=== PATIENT | male | born 1950 | race African-American/Black ===

== ENCOUNTER 2017-04-19 10:24 | Day surgery (SDC) | payer MEDICARE ==
[~2017-04-19 10:24] MED LIST: ALLEGRA-D 2424 HOUR PO; ALLEGRA-D24 HOUR OR; ALLERGY RELF10 M1 PO; AMLODIPINE5 MG PO; AVODART0.5 MG PO; CIPRO XR500 MG PO; CIPRO500 MG OR; CYCLOBENZAPR5 MG PO; DIFLUCAN150 MG PO; GABAPENTIN300 M2 PO; GLUCOPHAGE500 MG OR; HUMALIN SC; HUMULIN N1 ML SC; HUMULIN N100 UNIT/M; JANUVIA50 MG PO; LASIX 40 MG TAB40 MG PO; LISINOP/HCTZ1 TA1 PO; LISINOP/HCTZ1 TA2 OR; LISINOPRIL20 MG PO; LORTAB 5 OR; MACROBID100 MG PO; METFORMIN500 M1 PO; METFORMIN850 MG PO; MOBIC7.5 M1 PO; NAPROSYN375 MG PO; PRILOSEC20 MG PO; PROSTATE SR PO; PYRIDIUM200 MG PO; TAMSULOSIN0.4 MG PO; TRAMADOL HYDROC50 MG PO; ULTRAM50 M1 PO; ULTRAM50 MG OR
[2017-04-19] MEDS ORDERED: TRAMADOL HCL50 MG PO (16:48)
[2017-04-19] MEDS ORDERED: VESICARE5 MG PO (16:48)
[2017-04-19] MEDS ORDERED: BACTRIM DS1 TAB PO (16:48)
[2017-04-19] MEDS ORDERED: PYRIDIUM200 MG PO (16:48)
[2017-04-19 17:44] VITALS: BP 174/84
== END 2017-04-19 17:20 | disposition home health service (06) ==
LOC: ORM 10:24
PROVIDERS: ATTEND Urology
PROC: 0V508ZZ Destruction of Prostate, Via Natural or Artificial Opening Endoscopic (ICD-10-PCS; principal; 2017-04-19)
DX: N40.1 Benign prostatic hyperplasia with lower urinary tract symptoms (principal); N13.8 Other obstructive and reflux uropathy; R35.1 Nocturia; R97.20 Elevated prostate specific antigen [PSA]; E11.9 Type 2 diabetes mellitus without complications; K21.9 Gastro-esophageal reflux disease without esophagitis; Z87.891 Personal history of nicotine dependence
CPT/HCPCS: J1956

== ENCOUNTER 2017-05-05 11:46 | Emergency (ER) | payer MEDICARE ==
[~2017-05-05] VITALS: Ht 185.4 cm; Wt 91.8 kg
[~2017-05-05 11:46] MED LIST changes: +BACTRIM DS1 TAB PO; +TRAMADOL HCL50 MG PO; +VESICARE5 MG PO
[2017-05-05] MEDS ORDERED: HUMULIN N100 UNIT/M SC (12:17)
[2017-05-05 13:04] LABS: HEMATOCRIT 32.5 % (39.0-50.0); HEMOGLOBIN 9.9 g/dl (14.0-18.0); IMMATURE GRANULOCYTES 0.3 % (0.0-1.0); MEAN CELL VOLUME 90.3 fL CALC (80.0-100.0); MEAN CORPUSCULAR HGB 27.5 pG CALC (26.0-32.0); MEAN CORPUSCULAR HGB CONC 30.5 g/L CALC (32.0-36.0); NEUT# 10.89 thou/uL (1.82-7.42); RED BLOOD COUNT 3.6 mill/uL (4.70-6.10); RED CELL DISTRI WIDTH 16.4 % (11.5-15.5)
[2017-05-05 13:16] LABS: ALBUMIN 4.2 g/dL (3.2-5.0); ALKALINE PHOSPHATASE 105 u/l (38-126); AMYLASE 48 u/l (30-110); ANION GAP 17 (6-22 (CALC)); BILIRUBIN, TOTAL 1.3 mg/dL (0.0-1.4); BUN 15 mg/dL (8-23); BUN/CREATININE RATIO 17 (12-20 (CALC)); CALCIUM 9.7 mg/dL (8.4-10.2); CARBON DIOXIDE 27 mmol/l (22-30); CHLORIDE 99 mmol/l (95-108); CREATININE 0.8 mg/dL (0.7-1.3); GFR > 60 ML/MIN (>=60 (CALC)); GFR FOR AFR.AMER. > 60 ML/MIN (>=60 (CALC)); GLUCOSE 126 mg/dL (82-115); LIPASE 12 u/l (23-300); POTASSIUM 4.2 mmol/l (3.5-5.1); SGOT/AST 23 u/l (19-48); SGPT/ALT 42 u/l (11-66); SODIUM 139 mmol/l (137-146); TOTAL PROTEIN 7.6 g/dL (6.3-8.2)
[2017-05-05 13:28] LABS: MYOGLOBIN 37 ng/mL (0 - 121)
[2017-05-05 14:28] LABS: URINE BILIRUBIN - DIPSTICK NEGATIVE (NEGATIVE); URINE BLOOD DIPSTICK MODERATE (NEGATIVE); URINE GLUCOSE - DIPSTICK 100 mg/dL (NEGATIVE); URINE KETONE NEGATIVE (NEGATIVE); URINE PH 8.5 (4.5-8.0); URINE PROTEIN - DIPSTICK 100 mg/dL (NEG-TRACE)
[2017-05-05 14:30] LABS: URINE CLARITY CLOUDY; URINE COLOR ORANGE; URINE LEUK ESTERASE SMALL (NEGATIVE); URINE NITRITE - DIPSTICK POSITIVE (Negative)
[2017-05-05 14:42] LABS: URINE BACTERIA MANY hpf; URINE RBC TNTC RBC/hpf (0-5); URINE SQUAMOUS EPITHELIAL CELL FEW EPI/hpf (0-FEW); URINE WBC 20-50 WBC/hpf (0-5)
[2017-05-05] MEDS ORDERED: CITRATE OF MEGNESIA PO (17:04)
[2017-05-05] MEDS ORDERED: MIRALAX3350 N1 PO (17:04)
[2017-05-05] MEDS ORDERED: CEPHALEXIN500 MG PO (17:04)
[2017-05-05 17:27] VITALS: BP 143/77
== END 2017-05-05 17:25 | disposition home or self-care (01) ==
LOC: ED 11:46
PROVIDERS: Emergency Medicine
DX: T83.511A Infection and inflammatory reaction due to indwelling urethral catheter, initial encounter (principal); K59.00 Constipation, unspecified; R10.84 Generalized abdominal pain; R94.31 Abnormal electrocardiogram [ECG] [EKG]; B96.4 Proteus (mirabilis) (morganii) as the cause of diseases classified elsewhere
CPT/HCPCS: Q9967

== ENCOUNTER 2017-06-12 11:07 | Emergency (ER) | payer MEDICARE ==
[~2017-06-12] VITALS: Ht 185.4 cm; Wt 90.0 kg
[~2017-06-12 11:07] MED LIST changes: +CEPHALEXIN500 MG PO; +CITRATE OF MEGNESIA PO; +HUMULIN N100 UNIT/M SC; +MIRALAX3350 N1 PO
[2017-06-12] MEDS ORDERED: OXYBUTYNIN CHLO10 MG PO (11:50)
[2017-06-12 11:51] LABS: HEMATOCRIT 39.2 % (39.0-50.0); HEMOGLOBIN 12.2 g/dl (14.0-18.0); IMMATURE GRANULOCYTES 0.2 % (0.0-1.0); MEAN CELL VOLUME 82.5 fL CALC (80.0-100.0); MEAN CORPUSCULAR HGB 25.7 pG CALC (26.0-32.0); MEAN CORPUSCULAR HGB CONC 31.1 g/L CALC (32.0-36.0); NEUT# 2.87 thou/uL (1.82-7.42); RED BLOOD COUNT 4.75 mill/uL (4.70-6.10); URINE BILIRUBIN - DIPSTICK NEGATIVE (NEGATIVE); URINE BLOOD DIPSTICK SMALL (NEGATIVE); URINE CLARITY CLEAR; URINE COLOR YELLOW; URINE GLUCOSE - DIPSTICK NEGATIVE (NEGATIVE); URINE KETONE NEGATIVE (NEGATIVE); URINE PROTEIN - DIPSTICK NEGATIVE (NEG-TRACE); URINE SPECIFIC GRAVITY <=1.005; URINE UROBILINOGEN - DIPSTICK 0.2 E.U./dL (0.2)
[2017-06-12 11:55] LABS: URINE LEUK ESTERASE LARGE (NEGATIVE)
[2017-06-12 11:59] LABS: URINE NITRITE - DIPSTICK NEGATIVE (Negative)
[2017-06-12 12:01] LABS: URINE BACTERIA RARE hpf; URINE EPITHELIAL CELLS RARE EPI/hpf (0-FEW)
[2017-06-12 12:06] LABS: ALBUMIN 4.2 g/dL (3.2-5.0); ALKALINE PHOSPHATASE 86 u/l (38-126); ANION GAP 16 (6-22 (CALC)); BILIRUBIN, TOTAL 0.5 mg/dL (0.0-1.4); BUN 15 mg/dL (8-23); BUN/CREATININE RATIO 18 (12-20 (CALC)); CALCIUM 9.2 mg/dL (8.4-10.2); CARBON DIOXIDE 28 mmol/l (22-30); CHLORIDE 101 mmol/l (95-108); CREATININE 0.8 mg/dL (0.7-1.3); GFR > 60 ML/MIN (>=60 (CALC)); GFR FOR AFR.AMER. > 60 ML/MIN (>=60 (CALC)); GLUCOSE 213 mg/dL (82-115); POTASSIUM 4.1 mmol/l (3.5-5.1); SGOT/AST 32 u/l (19-48); SGPT/ALT 49 u/l (11-66); SODIUM 141 mmol/l (137-146); TOTAL PROTEIN 7.4 g/dL (6.3-8.2)
[2017-06-12] MEDS ORDERED: BACTRIM DS1 TAB PO (12:30)
[2017-06-12 12:45] VITALS: BP 150/80
== END 2017-06-12 12:45 | disposition home or self-care (01) ==
LOC: ED 11:07
PROVIDERS: Emergency Medicine
DX: N39.0 Urinary tract infection, site not specified (principal); R30.0 Dysuria; Z98.890 Other specified postprocedural states; B96.20 Unspecified Escherichia coli [E. coli] as the cause of diseases classified elsewhere

== ENCOUNTER 2018-10-23 06:40 | Emergency (ER) | payer MEDICARE ==
[~2018-10-23] VITALS: Ht 185.4 cm; Wt 80.0 kg
[~2018-10-23 06:40] MED LIST changes: +CIPROFLOXACN500 MG PO; +GLIMEPIRIDE4 MG PO; +MYRBETRIQ25 MG PO; +OXYBUTYNIN CHLO10 MG PO
[2018-10-23 07:23] LABS: HEMATOCRIT 38.1 % (39.0-50.0); HEMOGLOBIN 11.8 g/dl (14.0-18.0); IMMATURE GRANULOCYTES 0.2 % (0.0-5.0); MEAN CORPUSCULAR HGB 26.3 pG CALC (26.0-32.0); NEUT# 2.68 thou/uL (1.82-7.42); RED BLOOD COUNT 4.48 mill/uL (4.70-6.10); RED CELL DISTRI WIDTH 14.1 % (11.5-15.5)
[2018-10-23] MEDS ORDERED: ONDANSETRON HCL4 MG PO (07:25)
[2018-10-23] MEDS ORDERED: NAPROXEN250 MG PO (07:27)
[2018-10-23] MEDS ORDERED: PEPCID40 MG PO (07:29)
[2018-10-23] MEDS ORDERED: LOSARTAN POT50 MG PO (07:30)
[2018-10-23] MEDS ORDERED: HUMULIN N100 UNIT/M SC (07:31)
[2018-10-23 07:50] LABS: ALBUMIN 3.8 g/dL (3.2-5.0); ALKALINE PHOSPHATASE 81 u/l (38-126); ANION GAP 12 (6-22 (CALC)); BILIRUBIN, TOTAL 0.3 mg/dL (0.0-1.4); BUN 16 mg/dL (8-23); BUN/CREATININE RATIO 21 (12-20 (CALC)); CARBON DIOXIDE 28 mmol/l (22-30); CHLORIDE 102 mmol/l (95-108); CREATININE 0.8 mg/dL (0.7-1.3); GFR > 60 ML/MIN (>=60 (CALC)); GFR FOR AFR.AMER. > 60 ML/MIN (>=60 (CALC)); SGOT/AST 19 u/l (19-48); SODIUM 137 mmol/l (137-146); TOTAL PROTEIN 6.5 g/dL (6.3-8.2)
[2018-10-23] MEDS ORDERED: ULTRAM50 M1 PO (08:50)
[2018-10-23 09:21] VITALS: BP 184/75
[2018-12-09] MEDS ORDERED: TRAMADOL HYDROC50 MG PO (10:18)
[2018-12-09] MEDS ORDERED: MELOXICAM15 MG PO (10:20)
== END 2018-10-23 09:21 | disposition home or self-care (01) ==
LOC: ED 06:40
PROVIDERS: Emergency Medicine
DX: M25.512 Pain in left shoulder (principal); M25.511 Pain in right shoulder; E11.65 Type 2 diabetes mellitus with hyperglycemia; I10 Essential (primary) hypertension; M54.2 Cervicalgia

== ENCOUNTER 2019-08-15 19:46 | Observation (INO) | payer MEDICARE ==
[~2019-08-15] VITALS: Ht 185.4 cm; Wt 91.2 kg
[~2019-08-15 19:46] MED LIST changes: +LOSARTAN POT50 MG PO; +MELOXICAM15 MG PO; +NAPROXEN250 MG PO; +ONDANSETRON HCL4 MG PO; +PEPCID40 MG PO
[2019-08-15] MEDS ORDERED: NORVASC5 M1 PO (20:15)
[2019-08-15] MEDS ORDERED: PEPCID20 MG PO (20:15)
[2019-08-15] MEDS ORDERED: CARAFATE1 GM PO (20:16)
[2019-08-15] MEDS ORDERED: PERCOCET1 TA4 PO (20:16)
[2019-08-15] MEDS ORDERED: MYRBETRIQ25 MG PO (20:17)
[2019-08-15] MEDS ORDERED: LASIX20 MG PO (20:17)
[2019-08-15 20:39] LABS: HEMATOCRIT 36.6 % (39.0-50.0); HEMOGLOBIN 11.3 g/dl (14.0-18.0); IMMATURE GRANULOCYTES 0.3 % (0.0-5.0); MEAN CELL VOLUME 81.5 fL CALC (80.0-100.0); MEAN CORPUSCULAR HGB 25.2 pG CALC (26.0-32.0); MEAN CORPUSCULAR HGB CONC 30.9 g/L CALC (32.0-36.0); NEUT# 4.26 thou/uL (1.82-7.42); RED BLOOD COUNT 4.49 mill/uL (4.70-6.10); RED CELL DISTRI WIDTH 14.6 % (11.5-15.5)
[2019-08-15 20:40] LABS: ALBUMIN 4.4 g/dL (3.2-5.0); AMYLASE 71 u/l (30-110); ANION GAP 14 (6-22 (CALC)); BILIRUBIN, TOTAL 0.5 mg/dL (0.0-1.4); BUN 12 mg/dL (8-23); BUN/CREATININE RATIO 17 (12-20 (CALC)); CARBON DIOXIDE 30 mmol/l (22-30); CHLORIDE 98 mmol/l (95-108); CREATININE 0.7 mg/dL (0.7-1.3); GFR > 60 ML/MIN (>=60 (CALC)); GFR FOR AFR.AMER. > 60 ML/MIN (>=60 (CALC)); LIPASE 23 u/l (23-300); POTASSIUM 4.5 mmol/l (3.5-5.1); SGOT/AST 28 u/l (19-48); SODIUM 138 mmol/l (137-146); TOTAL PROTEIN 7.9 g/dL (6.3-8.2)
[2019-08-15 20:47] LABS: ALKALINE PHOSPHATASE 103 u/l (38-126)
[2019-08-15 23:20] VITALS: BP 178/67
[2019-08-16 04:08] VITALS: BP 175/77
[2019-08-16 07:30] VITALS: BP 159/75
[2019-08-16 16:00] VITALS: BP 190/75
[2019-08-16 19:25] VITALS: BP 182/80
[2019-08-16 20:50] VITALS: BP 103/51
[2019-08-16 23:16] LABS: URINE BILIRUBIN - DIPSTICK NEGATIVE (NEGATIVE); URINE BLOOD DIPSTICK NEGATIVE (NEGATIVE); URINE COLOR YELLOW; URINE GLUCOSE - DIPSTICK >=1000 mg/dL (NEGATIVE); URINE KETONE TRACE mg/dL (NEGATIVE); URINE LEUK ESTERASE NEGATIVE (NEGATIVE); URINE NITRITE - DIPSTICK NEGATIVE (Negative); URINE PROTEIN - DIPSTICK NEGATIVE (NEG-TRACE); URINE UROBILINOGEN - DIPSTICK 0.2 E.U./dL (0.2)
[2019-08-17 00:16] VITALS: BP 131/62
[2019-08-17 04:29] VITALS: BP 176/62
[2019-08-17 05:24] LABS: HEMATOCRIT 33.8 % (39.0-50.0); HEMOGLOBIN 10.5 g/dl (14.0-18.0); MEAN CELL VOLUME 82.4 fL CALC (80.0-100.0); MEAN CORPUSCULAR HGB 25.6 pG CALC (26.0-32.0); MEAN CORPUSCULAR HGB CONC 31.1 g/L CALC (32.0-36.0); RED BLOOD COUNT 4.1 mill/uL (4.70-6.10); RED CELL DISTRI WIDTH 14.6 % (11.5-15.5)
[2019-08-17 05:40] LABS: ANION GAP 12 (6-22 (CALC)); BUN 16 mg/dL (8-23); BUN/CREATININE RATIO 20 (12-20 (CALC)); CARBON DIOXIDE 30 mmol/l (22-30); CHLORIDE 97 mmol/l (95-108); CREATININE 0.8 mg/dL (0.7-1.3); GFR > 60 ML/MIN (>=60 (CALC)); GFR FOR AFR.AMER. > 60 ML/MIN (>=60 (CALC)); POTASSIUM 4.2 mmol/l (3.5-5.1); SODIUM 134 mmol/l (137-146)
[2019-08-17 07:10] VITALS: BP 121/56
[2019-08-17 11:51] VITALS: BP 153/55
== END 2019-08-17 13:58 | disposition home or self-care (01) ==
LOC: ED 19:46 → ED-I 21:55 → ED 21:56 → MS2 21:57
PROVIDERS: Family Medicine; ADMIT Internal Medicine; ATTEND Internal Medicine
DX: K59.03 Drug induced constipation (principal); T40.2X5A Adverse effect of other opioids, initial encounter; I10 Essential (primary) hypertension; E11.9 Type 2 diabetes mellitus without complications; K21.9 Gastro-esophageal reflux disease without esophagitis; Z79.4 Long term (current) use of insulin
CPT/HCPCS: G0378; J1650; S0164

== ENCOUNTER 2020-06-04 17:49 | Emergency (ER) | payer MEDICARE ==
[~2020-06-04] VITALS: Ht 185.4 cm; Wt 90.0 kg
[~2020-06-04 17:49] MED LIST changes: +CARAFATE1 GM PO; +LASIX20 MG PO; +NORVASC5 M1 PO; +PEPCID20 MG PO; +PERCOCET1 TA4 PO
[2020-06-04 18:24] LABS: HEMATOCRIT 38.1 % (39.0-50.0); HEMOGLOBIN 11.8 g/dl (14.0-18.0); MEAN CELL VOLUME 85.6 fL CALC (80.0-100.0); MEAN CORPUSCULAR HGB 26.5 pG CALC (26.0-32.0); NEUT# 3.33 thou/uL (1.82-7.42); RED BLOOD COUNT 4.45 mill/uL (4.70-6.10); RED CELL DISTRI WIDTH 13.8 % (11.5-15.5)
[2020-06-04 18:38] LABS: ALKALINE PHOSPHATASE 63 u/l (38-126); ANION GAP 11 (6-22 (CALC)); BILIRUBIN, TOTAL 0.6 mg/dL (0.0-1.4); BUN 18 mg/dL (8-23); BUN/CREATININE RATIO 24 (12-20 (CALC)); CARBON DIOXIDE 28 mmol/l (22-30); CHLORIDE 102 mmol/l (95-108); CREATININE 0.8 mg/dL (0.7-1.3); GFR > 60 ML/MIN (>=60 (CALC)); GFR FOR AFR.AMER. > 60 ML/MIN (>=60 (CALC)); SGOT/AST 21 u/l (19-48); SODIUM 137 mmol/l (137-146); TOTAL PROTEIN 6.8 g/dL (6.3-8.2)
[2020-06-04] MEDS ORDERED: FIORICET PO (18:56)
[2020-06-04 19:23] VITALS: BP 167/67
== END 2020-06-04 19:37 | disposition home or self-care (01) ==
LOC: ED 17:49
PROVIDERS: Emergency Medicine
DX: R51 Headache (principal); I10 Essential (primary) hypertension; E11.9 Type 2 diabetes mellitus without complications; R09.89 Other specified symptoms and signs involving the circulatory and respiratory systems; I63.9 Cerebral infarction, unspecified

== ENCOUNTER 2020-10-24 06:47 | Emergency (ER) | payer MEDICARE, MEDICAID ==
[~2020-10-24] VITALS: Ht 185.4 cm; Wt 100.0 kg
[~2020-10-24 06:47] MED LIST changes: +FIORICET PO
[2020-10-24] MEDS ORDERED: HYDROXYZINE HYD25 MG PO (07:05)
[2020-10-24] MEDS ORDERED: GABAPENTIN100 MG PO (07:06)
[2020-10-24] MEDS ORDERED: OMEPRAZOLE DR40 MG PO (07:06)
[2020-10-24] MEDS ORDERED: PLAVIX75 MG PO (07:07)
[2020-10-24] MEDS ORDERED: FIORICET PO (07:07)
[2020-10-24] MEDS ORDERED: FUROSEMIDE20 MG PO (07:08)
[2020-10-24] MEDS ORDERED: LOSARTAN POTASS50 MG PO (07:08)
[2020-10-24] MEDS ORDERED: FAMOTIDINE20 M1 PO (07:08)
[2020-10-24] MEDS ORDERED: LIPITOR20 M1 PO (07:09)
[2020-10-24] MEDS ORDERED: TAMSULOSIN0.4 MG PO (07:09)
[2020-10-24] MEDS ORDERED: PERCOCET 10/31 COMBO PO (07:09)
[2020-10-24] MEDS ORDERED: PREGABALIN75 MG PO (07:10)
[2020-10-24] MEDS ORDERED: LEVOTHYROXIN125 MCG PO (07:10)
[2020-10-24 07:46] LABS: IMMATURE GRANULOCYTES 0.2 % (0.0-5.0); MEAN CORPUSCULAR HGB 23.2 pG CALC (26.0-32.0); MEAN CORPUSCULAR HGB CONC 29.2 g/dL CAL (32.0-36.0); NEUT# 3.05 thou/uL (1.82-7.42); RED BLOOD COUNT 3.66 mill/uL (4.70-6.10); RED CELL DISTRI WIDTH 16.1 % (11.5-15.5)
[2020-10-24 07:53] LABS: ALBUMIN 3.9 g/dL (3.2-5.0); ALKALINE PHOSPHATASE 77 u/l (38-126); ANION GAP 9 (6-22 (CALC)); BILIRUBIN, TOTAL 0.5 mg/dL (0.0-1.4); BUN 24 mg/dL (8-23); BUN/CREATININE RATIO 26 (12-20 (CALC)); CARBON DIOXIDE 28 mmol/l (22-30); CHLORIDE 104 mmol/l (95-108); CREATININE 0.9 mg/dL (0.7-1.3); GFR > 60 ML/MIN (>=60 (CALC)); GFR FOR AFR.AMER. > 60 ML/MIN (>=60 (CALC)); LIPASE 21 u/l (23-300); POTASSIUM 4.2 mmol/l (3.5-5.1); SGOT/AST 28 u/l (19-48); SODIUM 137 mmol/l (137-146); TOTAL PROTEIN 6.9 g/dL (6.3-8.2)
[2020-10-24 07:57] LABS: HEMATOCRIT 29.1 % (39.0-50.0); HEMOGLOBIN 8.5 g/dl (14.0-18.0); MEAN CELL VOLUME 79.5 fL CALC (80.0-100.0)
[2020-10-24 08:04] LABS: URINE BILIRUBIN - DIPSTICK NEGATIVE (NEGATIVE); URINE BLOOD DIPSTICK NEGATIVE (NEGATIVE); URINE COLOR YELLOW; URINE GLUCOSE - DIPSTICK >=1000 mg/dL (NEGATIVE); URINE KETONE NEGATIVE (NEGATIVE); URINE LEUK ESTERASE NEGATIVE (NEGATIVE); URINE NITRITE - DIPSTICK NEGATIVE (Negative); URINE PROTEIN - DIPSTICK NEGATIVE (NEG-TRACE); URINE SPECIFIC GRAVITY 1.025
[2020-10-24] MEDS ORDERED: MIRALAX17 GM/SCOO PO (09:56)
[2020-10-24] MEDS ORDERED: MAGNESIUM296 ML/BTL PO (09:56)
[2020-10-24] MEDS ORDERED: DULCOLAX5 MG PO (09:56)
[2020-10-24 10:06] VITALS: BP 190/72
== END 2020-10-24 10:15 | disposition home or self-care (01) ==
LOC: ED 06:47
PROVIDERS: Student in an Organized Health Care Education/Training Program
DX: K59.03 Drug induced constipation (principal); T40.2X5A Adverse effect of other opioids, initial encounter; E11.9 Type 2 diabetes mellitus without complications; I10 Essential (primary) hypertension; Z86.73 Personal history of transient ischemic attack (TIA), and cerebral infarction without residual deficits; E78.5 Hyperlipidemia, unspecified
CPT/HCPCS: Q9967

== ENCOUNTER 2020-12-15 | Emergency (ER) | payer MEDICARE, MEDICAID ==
[~2020-12-15] MED LIST changes: +DULCOLAX5 MG PO; +FAMOTIDINE20 M1 PO; +FUROSEMIDE20 MG PO; +GABAPENTIN100 MG PO; +HYDROXYZINE HYD25 MG PO; +LEVOTHYROXIN125 MCG PO; +LIPITOR20 M1 PO; +LOSARTAN POTASS50 MG PO; +MAGNESIUM296 ML/BTL PO; +MIRALAX17 GM/SCOO PO; +OMEPRAZOLE DR40 MG PO; +PERCOCET 10/31 COMBO PO; +PLAVIX75 MG PO; +PREGABALIN75 MG PO
[2020-12-15 12:12] LABS: HEMATOCRIT 29.3 % (39.0-50.0); HEMOGLOBIN 8.3 g/dl (14.0-18.0); IMMATURE GRANULOCYTES 0.2 % (0.0-5.0); MEAN CELL VOLUME 70.6 fL CALC (80.0-100.0); MEAN CORPUSCULAR HGB CONC 28.3 g/dL CAL (32.0-36.0); NEUT# 2.48 thou/uL (1.82-7.42); RED BLOOD COUNT 4.15 mill/uL (4.70-6.10); RED CELL DISTRI WIDTH 17.4 % (11.5-15.5)
[2020-12-15 12:29] LABS: ALKALINE PHOSPHATASE 78 u/l (38-126); ANION GAP 6 (6-22 (CALC)); BILIRUBIN, TOTAL 0.5 mg/dL (0.0-1.4); BUN 14 mg/dL (8-23); BUN/CREATININE RATIO 14 (12-20 (CALC)); CHLORIDE 102 mmol/l (95-108); GFR > 60 ML/MIN (>=60 (CALC)); GFR FOR AFR.AMER. > 60 ML/MIN (>=60 (CALC)); SGOT/AST 26 u/l (19-48); SODIUM 138 mmol/l (137-146); TOTAL PROTEIN 7.5 g/dL (6.3-8.2)
[2020-12-15 12:30] LABS: CARBON DIOXIDE 34 mmol/l (22-30)
[2020-12-15] MEDS ORDERED: ULTRAM50 M1 PO (12:58)
[2020-12-15] MEDS ORDERED: BACTRIM DS1 TAB PO (12:58)
[2020-12-15] MEDS ORDERED: METRONIDAZOL500 MG PO (12:58)
== END 2020-12-15 13:47 | disposition home or self-care (01) ==
PROVIDERS: Emergency Medicine
DX: L03.115 Cellulitis of right lower limb (principal); E11.42 Type 2 diabetes mellitus with diabetic polyneuropathy; I10 Essential (primary) hypertension; E78.5 Hyperlipidemia, unspecified; Z86.73 Personal history of transient ischemic attack (TIA), and cerebral infarction without residual deficits; M79.89 Other specified soft tissue disorders

== ENCOUNTER 2020-12-17 | Emergency (ER) | payer MEDICARE, MEDICAID ==
[~2020-12-17] MED LIST changes: +METRONIDAZOL500 MG PO
[2020-12-17 06:16] LABS: HEMATOCRIT 29.8 % (39.0-50.0); HEMOGLOBIN 8.4 g/dl (14.0-18.0); IMMATURE GRANULOCYTES 0.4 % (0.0-5.0); MEAN CELL VOLUME 70.3 fL CALC (80.0-100.0); MEAN CORPUSCULAR HGB 19.8 pG CALC (26.0-32.0); MEAN CORPUSCULAR HGB CONC 28.2 g/dL CAL (32.0-36.0); NEUT# 7.25 thou/uL (1.82-7.42); RED BLOOD COUNT 4.24 mill/uL (4.70-6.10); RED CELL DISTRI WIDTH 17.6 % (11.5-15.5)
[2020-12-17 06:31] LABS: ALBUMIN 4.1 g/dL (3.2-5.0); ALKALINE PHOSPHATASE 105 u/l (38-126); AMYLASE 64 u/l (30-110); ANION GAP 19 (6-22 (CALC)); BILIRUBIN, TOTAL 0.8 mg/dL (0.0-1.4); BUN 28 mg/dL (8-23); BUN/CREATININE RATIO 24 (12-20 (CALC)); CARBON DIOXIDE 19 mmol/l (22-30); CHLORIDE 101 mmol/l (95-108); CREATININE 1.2 mg/dL (0.7-1.3); GFR 60 ML/MIN (>=60 (CALC)); GFR FOR AFR.AMER. > 60 ML/MIN (>=60 (CALC)); LIPASE 19 u/l (23-300); POTASSIUM 4.9 mmol/l (3.5-5.1); SGOT/AST 27 u/l (19-48); SODIUM 134 mmol/l (137-146); TOTAL PROTEIN 7.2 g/dL (6.3-8.2)
[2020-12-17 06:42] LABS: MYOGLOBIN 57 ng/mL (0 - 121)
[2020-12-17 07:29] LABS: URINE BILIRUBIN - DIPSTICK NEGATIVE (NEGATIVE); URINE BLOOD DIPSTICK NEGATIVE (NEGATIVE); URINE COLOR YELLOW; URINE GLUCOSE - DIPSTICK >=1000 mg/dL (NEGATIVE); URINE KETONE >=80 mg/dL (NEGATIVE); URINE LEUK ESTERASE NEGATIVE (NEGATIVE); URINE NITRITE - DIPSTICK NEGATIVE (Negative); URINE PH 5.5 (4.5-8.0); URINE PROTEIN - DIPSTICK NEGATIVE (NEG-TRACE); URINE UROBILINOGEN - DIPSTICK 0.2 E.U./dL (0.2)
[2020-12-17] MEDS ORDERED: ZOFRAN4 M1 PO (08:40)
[2020-12-17] MEDS ORDERED: MAGNESIUM296 ML/BTL PO (08:40)
[2020-12-18] MEDS ORDERED: TRESIBA100 UNIT/M (21:16)
== END 2020-12-17 09:11 | disposition home or self-care (01) ==
PROVIDERS: Family Medicine
DX: R10.84 Generalized abdominal pain (principal); E11.65 Type 2 diabetes mellitus with hyperglycemia; L03.115 Cellulitis of right lower limb; E11.40 Type 2 diabetes mellitus with diabetic neuropathy, unspecified; I10 Essential (primary) hypertension; E78.5 Hyperlipidemia, unspecified; Z79.891 Long term (current) use of opiate analgesic; Z79.4 Long term (current) use of insulin; Z96.41 Presence of insulin pump (external) (internal); Z86.73 Personal history of transient ischemic attack (TIA), and cerebral infarction without residual deficits
CPT/HCPCS: Q9967

== ENCOUNTER 2020-12-18 17:26 | Emergency (ER) | payer MEDICARE, MEDICAID ==
[~2020-12-18 17:26] MED LIST changes: +ZOFRAN4 M1 PO
[2020-12-18 18:39] LABS: HEMATOCRIT 28.5 % (39.0-50.0); HEMOGLOBIN 8.4 g/dl (14.0-18.0); IMMATURE GRANULOCYTES 0.4 % (0.0-5.0); MEAN CELL VOLUME 68.7 fL CALC (80.0-100.0); MEAN CORPUSCULAR HGB 20.2 pG CALC (26.0-32.0); MEAN CORPUSCULAR HGB CONC 29.5 g/dL CAL (32.0-36.0); NEUT# 15.73 thou/uL (1.82-7.42); RED BLOOD COUNT 4.15 mill/uL (4.70-6.10); RED CELL DISTRI WIDTH 17.4 % (11.5-15.5)
[2020-12-18 18:57] LABS: ALBUMIN 4.3 g/dL (3.2-5.0); ALKALINE PHOSPHATASE 102 u/l (38-126); ANION GAP 9 (6-22 (CALC)); BILIRUBIN, TOTAL 0.7 mg/dL (0.0-1.4); BUN 24 mg/dL (8-23); BUN/CREATININE RATIO 23 (12-20 (CALC)); CARBON DIOXIDE 28 mmol/l (22-30); CHLORIDE 104 mmol/l (95-108); CREATININE 1.1 mg/dL (0.7-1.3); GFR > 60 ML/MIN (>=60 (CALC)); GFR FOR AFR.AMER. > 60 ML/MIN (>=60 (CALC)); LIPASE 15 u/l (23-300); SGOT/AST 35 u/l (19-48); SODIUM 137 mmol/l (137-146)
[2020-12-18] MEDS ORDERED: TRESIBA100 UNIT/M (21:16)
[2020-12-18 21:36] VITALS: BP 148/58
== END 2020-12-18 21:36 | disposition short-term general hospital (02) ==
LOC: ED 17:26
PROVIDERS: Family Medicine
DX: R10.84 Generalized abdominal pain (principal); R79.89 Other specified abnormal findings of blood chemistry; E11.9 Type 2 diabetes mellitus without complications; I10 Essential (primary) hypertension; E78.5 Hyperlipidemia, unspecified; Z86.73 Personal history of transient ischemic attack (TIA), and cerebral infarction without residual deficits

== ENCOUNTER 2021-02-25 10:53 | Emergency (ER) | payer MEDICARE, MEDICAID ==
[~2021-02-25] VITALS: Ht 185.4 cm; Wt 95.0 kg
[~2021-02-25 10:53] MED LIST changes: +TRESIBA100 UNIT/M
[2021-02-25 12:20] VITALS: BP 153/60
== END 2021-02-25 12:20 | disposition home or self-care (01) ==
LOC: ED 10:53
PROC: 0HQMXZZ Repair Right Foot Skin, External Approach (ICD-10-PCS; principal; 2021-02-25)
DX: S90.411A Abrasion, right great toe, initial encounter (principal); E11.9 Type 2 diabetes mellitus without complications; I10 Essential (primary) hypertension; E78.5 Hyperlipidemia, unspecified; X58.XXXA Exposure to other specified factors, initial encounter; Y92.89 Other specified places as the place of occurrence of the external cause; Z86.73 Personal history of transient ischemic attack (TIA), and cerebral infarction without residual deficits; Z85.46 Personal history of malignant neoplasm of prostate; Z79.01 Long term (current) use of anticoagulants; Z79.4 Long term (current) use of insulin

== ENCOUNTER 2021-06-22 03:42 | Emergency (ER) | payer MEDICARE, MEDICAID ==
[~2021-06-22] VITALS: Ht 185.4 cm; Wt 70.0 kg
[2021-06-22 04:25] LABS: HEMATOCRIT 31.5 % (39.0-50.0); HEMOGLOBIN 9.5 g/dl (14.0-18.0); IMMATURE GRANULOCYTES 0.2 % (0.0-5.0); MEAN CELL VOLUME 87.5 fL CALC (80.0-100.0); MEAN CORPUSCULAR HGB 26.4 pG CALC (26.0-32.0); MEAN CORPUSCULAR HGB CONC 30.2 g/dL CAL (32.0-36.0); NEUT# 1.48 thou/uL (1.82-7.42); RED BLOOD COUNT 3.6 mill/uL (4.70-6.10); RED CELL DISTRI WIDTH 16.1 % (11.5-15.5); URINE BILIRUBIN - DIPSTICK NEGATIVE (NEGATIVE); URINE BLOOD DIPSTICK NEGATIVE (NEGATIVE); URINE COLOR YELLOW; URINE GLUCOSE - DIPSTICK NEGATIVE (NEGATIVE); URINE KETONE NEGATIVE (NEGATIVE); URINE LEUK ESTERASE NEGATIVE (NEGATIVE); URINE PH 5.5 (4.5-8.0); URINE PROTEIN - DIPSTICK NEGATIVE (NEG-TRACE); URINE UROBILINOGEN - DIPSTICK 0.2 E.U./dL (0.2)
[2021-06-22 04:28] LABS: URINE NITRITE - DIPSTICK NEGATIVE (Negative)
[2021-06-22 04:42] LABS: ALBUMIN 3.7 g/dL (3.2-5.0); ALKALINE PHOSPHATASE 73 u/l (38-126); AMYLASE 85 u/l (30-110); ANION GAP 9 (6-22 (CALC)); BUN 24 mg/dL (8-23); BUN/CREATININE RATIO 26 (12-20 (CALC)); CARBON DIOXIDE 30 mmol/l (22-30); CHLORIDE 104 mmol/l (95-108); CREATININE 0.9 mg/dL (0.7-1.3); GFR > 60 ML/MIN (>=60 (CALC)); GFR FOR AFR.AMER. > 60 ML/MIN (>=60 (CALC)); LIPASE 53 u/l (23-300); POTASSIUM 4.3 mmol/l (3.5-5.1); SGOT/AST 21 u/l (19-48); SODIUM 139 mmol/l (137-146); TOTAL PROTEIN 6.9 g/dL (6.3-8.2)
[2021-06-22 04:43] LABS: BILIRUBIN, TOTAL 0.4 mg/dL (0.0-1.4)
[2021-06-22 04:44] LABS: ACT PARTIAL THROMBO TIME 20.4 SECONDS (20.0-32.5); INTERNATIONAL NORMALIZED RATIO 0.9 RATIO (0.7-1.3); PROTHROMBIN TIME 9.9 SECONDS (9.0-12.5)
[2021-06-22] MEDS ORDERED: CITROMA PO (05:40)
[2021-06-22 06:00] VITALS: BP 184/70
== END 2021-06-22 06:00 | disposition home or self-care (01) ==
LOC: ED 03:42
DX: K59.03 Drug induced constipation (principal); T40.2X5A Adverse effect of other opioids, initial encounter; E11.65 Type 2 diabetes mellitus with hyperglycemia; I10 Essential (primary) hypertension; E78.5 Hyperlipidemia, unspecified; Z79.4 Long term (current) use of insulin; D64.9 Anemia, unspecified; Z85.46 Personal history of malignant neoplasm of prostate; Z86.73 Personal history of transient ischemic attack (TIA), and cerebral infarction without residual deficits

== ENCOUNTER 2021-09-11 11:22 | Emergency (ER) | payer MEDICARE, MEDICAID ==
[~2021-09-11] VITALS: Ht 185.4 cm; Wt 97.0 kg
[~2021-09-11 11:22] MED LIST changes: +CITROMA PO
[2021-09-11] MEDS ORDERED: SB ALLERGY10 MG PO (11:53)
[2021-09-11] MEDS ORDERED: OMNI-PAC300 MG PO (11:53)
[2021-09-11 12:11] VITALS: BP 184/72
== END 2021-09-11 12:22 | disposition home or self-care (01) ==
LOC: ED 11:22
DX: L03.113 Cellulitis of right upper limb (principal); I10 Essential (primary) hypertension; E11.9 Type 2 diabetes mellitus without complications; E78.5 Hyperlipidemia, unspecified; Z79.4 Long term (current) use of insulin; Z86.73 Personal history of transient ischemic attack (TIA), and cerebral infarction without residual deficits

== ENCOUNTER 2021-11-01 12:15 | Emergency (ER) | payer MEDICARE, MEDICAID ==
[~2021-11-01 12:15] MED LIST changes: +OMNI-PAC300 MG PO; +SB ALLERGY10 MG PO
== END 2021-11-01 13:28 | disposition left against medical advice (07) ==
LOC: ED 12:15 → LWOBS 13:27
DX: Z53.21 Procedure and treatment not carried out due to patient leaving prior to being seen by health care provider (principal)

== ENCOUNTER 2021-12-09 15:15 | Emergency (ER) | payer MEDICARE, MEDICAID ==
[2021-12-09] VITALS (10 sets, daily range): BP systolic 147–177; BP diastolic 52–67
[~2021-12-09] VITALS: Ht 185.4 cm; Wt 87.0 kg
[2021-12-09] MEDS ORDERED: KEFLEX500 MG PO (17:33)
== END 2021-12-09 18:22 | disposition home or self-care (01) ==
LOC: ED 15:15
PROC: 0HQFXZZ Repair Right Hand Skin, External Approach (ICD-10-PCS; principal; 2021-12-09)
DX: S61.234A Puncture wound without foreign body of right ring finger without damage to nail, initial encounter (principal); I10 Essential (primary) hypertension; E11.9 Type 2 diabetes mellitus without complications; E78.5 Hyperlipidemia, unspecified; W26.8XXA Contact with other sharp object(s), not elsewhere classified, initial encounter; Y93.H3 Activity, building and construction; Z86.73 Personal history of transient ischemic attack (TIA), and cerebral infarction without residual deficits; Z79.4 Long term (current) use of insulin

== ENCOUNTER 2021-12-26 15:59 | Emergency (ER) | payer MEDICARE, MEDICAID ==
[2021-12-26] VITALS (8 sets, daily range): BP systolic 154–194; BP diastolic 58–71
[~2021-12-26] VITALS: Ht 185.4 cm; Wt 96.8 kg
[~2021-12-26 15:59] MED LIST changes: +KEFLEX500 MG PO
[2021-12-26] MEDS ORDERED: SYNTHROID150 MCG PO (17:26)
[2021-12-26] MEDS ORDERED: TIZANIDINE2 MG PO (17:27)
[2021-12-26] MEDS ORDERED: ACETAMINOP160 MG/5 M PO (17:28)
[2021-12-26] MEDS ORDERED: LOSARTAN POTASS50 MG PO ×2 (17:28→19:53)
[2021-12-26] MEDS ORDERED: CLOPIDOGREL75 MG PO (17:29)
[2021-12-26] MEDS ORDERED: TAMSULOSIN HCL0.4 MG PO (17:30)
[2021-12-26] MEDS ORDERED: HUMALOG100 UNIT (17:31)
[2021-12-26] MEDS ORDERED: LIPITOR20 M1 PO (17:31)
[2021-12-26] MEDS ORDERED: BUMETANIDE1 MG PO (17:32)
[2021-12-26 18:44] LABS: HEMOGLOBIN 10.5 g/dl (14.0-18.0); IMMATURE GRANULOCYTES 0.2 % (0.0-5.0); MEAN CELL VOLUME 87.9 fL CALC (80.0-100.0); MEAN CORPUSCULAR HGB 26.4 pG CALC (26.0-32.0); NEUT# 2.19 thou/uL (1.82-7.42); RED BLOOD COUNT 3.98 mill/uL (4.70-6.10); RED CELL DISTRI WIDTH 13.6 % (11.5-15.5)
[2021-12-26 19:06] LABS: ALBUMIN 3.8 g/dL (3.2-5.0); ALKALINE PHOSPHATASE 81 u/l (38-126); ANION GAP 9 (6-22 (CALC)); BUN 18 mg/dL (8-23); BUN/CREATININE RATIO 19 (12-20 (CALC)); CARBON DIOXIDE 27 mmol/l (22-30); CHLORIDE 106 mmol/l (95-108); ETHYL ALCOHOL 0 mg/dl (0-30); GFR > 60 ML/MIN (>=60 (CALC)); GFR FOR AFR.AMER. > 60 ML/MIN (>=60 (CALC)); LIPASE 39 u/l (23-300); POTASSIUM 4.2 mmol/l (3.5-5.1); SGOT/AST 27 u/l (19-48); SODIUM 137 mmol/l (137-146)
[2021-12-26 19:07] LABS: BILIRUBIN, TOTAL 0.2 mg/dL (0.0-1.4)
[2021-12-26 19:08] LABS: ACT PARTIAL THROMBO TIME 23.7 SECONDS (20.0-32.5); INTERNATIONAL NORMALIZED RATIO 0.9 RATIO (0.7-1.3); PROTHROMBIN TIME 9.7 SECONDS (9.0-12.5)
[2021-12-26 20:11] LABS: URINE BILIRUBIN - DIPSTICK NEGATIVE (NEGATIVE); URINE BLOOD DIPSTICK NEGATIVE (NEGATIVE); URINE COLOR YELLOW; URINE GLUCOSE - DIPSTICK >=1000 mg/dL (NEGATIVE); URINE KETONE NEGATIVE (NEGATIVE); URINE LEUK ESTERASE NEGATIVE (NEGATIVE); URINE PROTEIN - DIPSTICK NEGATIVE (NEG-TRACE); URINE SPECIFIC GRAVITY >=1.030; URINE UROBILINOGEN - DIPSTICK 0.2 E.U./dL (0.2)
[2021-12-26 20:12] LABS: URINE NITRITE - DIPSTICK NEGATIVE (Negative)
[2021-12-26] MEDS ORDERED: OMNI-PAC300 MG PO (21:02)
== END 2021-12-26 21:53 | disposition home or self-care (01) ==
LOC: ED 15:59
DX: K59.03 Drug induced constipation (principal); T40.2X5A Adverse effect of other opioids, initial encounter; L03.116 Cellulitis of left lower limb; L03.115 Cellulitis of right lower limb; M25.511 Pain in right shoulder; G89.29 Other chronic pain; E11.9 Type 2 diabetes mellitus without complications; I10 Essential (primary) hypertension; E78.5 Hyperlipidemia, unspecified; Z86.73 Personal history of transient ischemic attack (TIA), and cerebral infarction without residual deficits; Z79.4 Long term (current) use of insulin; Z98.890 Other specified postprocedural states; M79.89 Other specified soft tissue disorders
CPT/HCPCS: Q9967

== ENCOUNTER 2022-07-16 05:36 | Emergency (ER) | payer MEDICARE, MEDICAID ==
[~2022-07-16] VITALS: Ht 185.4 cm; Wt 99.0 kg
[~2022-07-16 05:36] MED LIST changes: +ACETAMINOP160 MG/5 M PO; +BUMETANIDE1 MG PO; +CLOPIDOGREL75 MG PO; +HUMALOG100 UNIT; +LYRICA150 M1 PO; +SYNTHROID150 MCG PO; +TAMSULOSIN HCL0.4 MG PO; +TIZANIDINE2 MG PO
[2022-07-16 05:45] VITALS: BP 157/55
[2022-07-16] MEDS ORDERED: LIPITOR20 M1 PO (05:49)
[2022-07-16 06:01] VITALS: BP 149/53
[2022-07-16] MEDS ORDERED: VALTREX1 GM PO (06:11)
[2022-07-16 06:18] VITALS: BP 160/59
[2022-07-16 06:31] VITALS: BP 165/57
== END 2022-07-16 06:38 | disposition home or self-care (01) ==
LOC: ED 05:36
DX: B02.9 Zoster without complications (principal); I10 Essential (primary) hypertension; E11.9 Type 2 diabetes mellitus without complications; E78.5 Hyperlipidemia, unspecified; Z86.73 Personal history of transient ischemic attack (TIA), and cerebral infarction without residual deficits; Z79.4 Long term (current) use of insulin

== ENCOUNTER 2022-08-05 20:46 | Emergency (ER) | payer MEDICARE, MEDICAID ==
[~2022-08-05] VITALS: Ht 185.4 cm; Wt 97.7 kg
[~2022-08-05 20:46] MED LIST changes: +VALTREX1 GM PO
[2022-08-05] MEDS ORDERED: ULTRAM50 MG PO (22:10)
[2022-08-05 22:21] VITALS: BP 156/83
== END 2022-08-05 22:31 | disposition home or self-care (01) ==
LOC: ED 20:46
DX: M16.0 Bilateral primary osteoarthritis of hip (principal); E11.40 Type 2 diabetes mellitus with diabetic neuropathy, unspecified; I10 Essential (primary) hypertension; E78.5 Hyperlipidemia, unspecified; Z86.73 Personal history of transient ischemic attack (TIA), and cerebral infarction without residual deficits; Z79.4 Long term (current) use of insulin

== ENCOUNTER 2022-10-21 08:57 | Emergency (ER) | payer MEDICARE, MEDICAID ==
[~2022-10-21] VITALS: Ht 185.4 cm; Wt 100.0 kg
[~2022-10-21 08:57] MED LIST changes: +ULTRAM50 MG PO
[2022-10-21] MEDS ORDERED: OMNI-PAC300 MG PO (09:19)
[2022-10-21 09:57] VITALS: BP 132/49
== END 2022-10-21 10:01 | disposition home or self-care (01) ==
LOC: ED 08:57
DX: L03.113 Cellulitis of right upper limb (principal); I10 Essential (primary) hypertension; E11.9 Type 2 diabetes mellitus without complications; E78.5 Hyperlipidemia, unspecified; Z86.73 Personal history of transient ischemic attack (TIA), and cerebral infarction without residual deficits; Z79.4 Long term (current) use of insulin

== ENCOUNTER 2023-01-17 11:08 | Observation (INO) | payer MEDICARE, MEDICAID ==
[~2023-01-17] VITALS: Ht 185.4 cm; Wt 94.4 kg
[2023-01-17] VITALS (22 sets, daily range): BP systolic 129–186; BP diastolic 33–65
[2023-01-17 10:48] LABS: BASO% 0.8 % (0-3); EOS% 5.9 % (0-8); HEMATOCRIT 39.9 % (39.0-50.0); HEMOGLOBIN 12.1 g/dl (14.0-18.0); IMMATURE GRANULOCYTES 0.2 % (0.0-5.0); LYMPH% 36.2 % (15-41); MEAN CELL VOLUME 88.3 fL CALC (80.0-100.0); MEAN CORPUSCULAR HGB 26.8 pG CALC (26.0-32.0); MEAN CORPUSCULAR HGB CONC 30.3 g/dL CAL (32.0-36.0); MONO% 13.9 % (2-13); NEUT# 2.13 thou/uL (1.82-7.42); RED BLOOD COUNT 4.52 mill/uL (4.70-6.10); RED CELL DISTRI WIDTH 13.9 % (11.5-15.5)
[2023-01-17 10:58] LABS: ALBUMIN 4.2 g/dL (3.2-5.0); ALKALINE PHOSPHATASE 88 u/l (38-126); ANION GAP 10 (6-22 (CALC)); BUN 19 mg/dL (8-23); BUN/CREATININE RATIO 19 (12-20 (CALC)); CARBON DIOXIDE 33 mmol/l (22-30); CHLORIDE 100 mmol/l (95-108); GFR FOR AFR.AMER. > 60 ML/MIN (>=60 (CALC)); GFR OTHER RACES > 60 ML/MIN (>=60 (CALC)); POTASSIUM 4.4 mmol/l (3.5-5.1); SGOT/AST 37 u/l (19-48); SODIUM 138 mmol/l (137-146); TOTAL PROTEIN 7.4 g/dL (6.3-8.2)
[2023-01-17 11:01] LABS: BILIRUBIN, TOTAL 0.6 mg/dL (0.2-1.3)
[~2023-01-17 11:08] MED LIST changes: +OMNICEF300 M1 PO; +TERBINAFINE250 M1 PO
[2023-01-17] MEDS ORDERED: VITAMIN D-32000 UNI1 PO (11:25)
[2023-01-17] MEDS ORDERED: COLACE100 MG PO (11:26)
[2023-01-17] MEDS ORDERED: FERROUS SULF325 M3 PO (11:26)
[2023-01-17 19:38] LABS: URINE BILIRUBIN - DIPSTICK NEGATIVE (NEGATIVE); URINE BLOOD DIPSTICK NEGATIVE (NEGATIVE); URINE COLOR YELLOW; URINE GLUCOSE - DIPSTICK >=1000 mg/dL (NEGATIVE); URINE KETONE NEGATIVE (NEGATIVE); URINE LEUK ESTERASE NEGATIVE (NEGATIVE); URINE PROTEIN - DIPSTICK NEGATIVE (NEG-TRACE); URINE UROBILINOGEN - DIPSTICK 0.2 E.U./dL (0.2)
[2023-01-17 19:42] LABS: URINE NITRITE - DIPSTICK NEGATIVE (Negative)
[2023-01-18] VITALS (9 sets, daily range): BP systolic 119–183; BP diastolic 33–77
[2023-01-18] MEDS ORDERED: (None)1 % OP (01:57)
[2023-01-18] MEDS ORDERED: KETOROLAC0.5 % OP (01:58)
[2023-01-18 08:17] LABS: BASO% 0.8 % (0-3); EOS% 5.5 % (0-8); HEMATOCRIT 40.1 % (39.0-50.0); IMMATURE GRANULOCYTES 0.4 % (0.0-5.0); LYMPH% 26.1 % (15-41); MEAN CELL VOLUME 87.9 fL CALC (80.0-100.0); MEAN CORPUSCULAR HGB 26.3 pG CALC (26.0-32.0); MEAN CORPUSCULAR HGB CONC 29.9 g/dL CAL (32.0-36.0); MONO% 10.7 % (2-13); NEUT# 2.9 thou/uL (1.82-7.42); NEUT% 56.5 % (42-76); RED BLOOD COUNT 4.56 mill/uL (4.70-6.10); RED CELL DISTRI WIDTH 13.9 % (11.5-15.5)
[2023-01-18 08:29] LABS: ALBUMIN 4.1 g/dL (3.2-5.0); ALKALINE PHOSPHATASE 103 u/l (38-126); ANION GAP 11 (6-22 (CALC)); BILIRUBIN, TOTAL 0.7 mg/dL (0.2-1.3); BUN 18 mg/dL (8-23); BUN/CREATININE RATIO 18 (12-20 (CALC)); CARBON DIOXIDE 27 mmol/l (22-30); CHLORIDE 103 mmol/l (95-108); GFR FOR AFR.AMER. > 60 ML/MIN (>=60 (CALC)); GFR OTHER RACES > 60 ML/MIN (>=60 (CALC)); MAGNESIUM 2.2 mg/dL (1.6-2.3); POTASSIUM 4.7 mmol/l (3.5-5.1); SGOT/AST 32 u/l (19-48); SODIUM 136 mmol/l (137-146); TOTAL PROTEIN 7.1 g/dL (6.3-8.2)
[2023-01-19] VITALS (10 sets, daily range): BP systolic 128–179; BP diastolic 40–66
[2023-01-19 05:46] LABS: HEMOGLOBIN 11.8 g/dl (14.0-18.0); IMMATURE GRANULOCYTES 0.3 % (0.0-5.0); LYMPH% 38.8 % (15-41); MEAN CELL VOLUME 87.1 fL CALC (80.0-100.0); MEAN CORPUSCULAR HGB 26.3 pG CALC (26.0-32.0); MEAN CORPUSCULAR HGB CONC 30.3 g/dL CAL (32.0-36.0); MONO% 13.5 % (2-13); NEUT# 1.58 thou/uL (1.82-7.42); NEUT% 39.4 % (42-76); RED BLOOD COUNT 4.48 mill/uL (4.70-6.10); RED CELL DISTRI WIDTH 13.7 % (11.5-15.5)
[2023-01-19 06:02] LABS: ALBUMIN 3.7 g/dL (3.2-5.0); ALKALINE PHOSPHATASE 86 u/l (38-126); ANION GAP 8 (6-22 (CALC)); BUN 21 mg/dL (8-23); BUN/CREATININE RATIO 21 (12-20 (CALC)); CARBON DIOXIDE 31 mmol/l (22-30); CHLORIDE 103 mmol/l (95-108); GFR FOR AFR.AMER. > 60 ML/MIN (>=60 (CALC)); GFR OTHER RACES > 60 ML/MIN (>=60 (CALC)); MAGNESIUM 2.1 mg/dL (1.6-2.3); POTASSIUM 4.1 mmol/l (3.5-5.1); SGOT/AST 25 u/l (19-48); SODIUM 138 mmol/l (137-146); TOTAL PROTEIN 6.5 g/dL (6.3-8.2)
[2023-01-19 06:04] LABS: BILIRUBIN, TOTAL 0.4 mg/dL (0.2-1.3)
[2023-01-20] VITALS (13 sets, daily range): BP systolic 97–159; BP diastolic 30–61
[2023-01-20 04:59] LABS: BASO% 0.6 % (0-3); EOS% 6.9 % (0-8); HEMATOCRIT 41.6 % (39.0-50.0); HEMOGLOBIN 12.7 g/dl (14.0-18.0); LYMPH% 37.6 % (15-41); MEAN CORPUSCULAR HGB 26.6 pG CALC (26.0-32.0); MEAN CORPUSCULAR HGB CONC 30.5 g/dL CAL (32.0-36.0); MONO% 16.1 % (2-13); NEUT# 1.8 thou/uL (1.82-7.42); NEUT% 38.8 % (42-76); RED BLOOD COUNT 4.78 mill/uL (4.70-6.10); RED CELL DISTRI WIDTH 13.5 % (11.5-15.5)
[2023-01-20 05:17] LABS: ALBUMIN 3.8 g/dL (3.2-5.0); ALKALINE PHOSPHATASE 97 u/l (38-126); ANION GAP 10 (6-22 (CALC)); BILIRUBIN, TOTAL 0.4 mg/dL (0.2-1.3); BUN 23 mg/dL (8-23); BUN/CREATININE RATIO 24 (12-20 (CALC)); CARBON DIOXIDE 29 mmol/l (22-30); CHLORIDE 102 mmol/l (95-108); GFR FOR AFR.AMER. > 60 ML/MIN (>=60 (CALC)); GFR OTHER RACES > 60 ML/MIN (>=60 (CALC)); MAGNESIUM 2.1 mg/dL (1.6-2.3); POTASSIUM 4.2 mmol/l (3.5-5.1); SGOT/AST 26 u/l (19-48); SODIUM 138 mmol/l (137-146); TOTAL PROTEIN 6.7 g/dL (6.3-8.2)
[2023-01-21 04:00] VITALS: BP 113/39
[2023-01-21 04:20] VITALS: BP 113/39
[2023-01-21 09:00] VITALS: BP 137/47
[2023-01-21 13:50] VITALS: BP 137/57
[2023-01-21 19:17] VITALS: BP 146/61
[2023-01-22 00:25] VITALS: BP 136/36
[2023-01-22 03:59] VITALS: BP 147/44
[2023-01-22 05:00] LABS: HEMATOCRIT 40.1 % (39.0-50.0); HEMOGLOBIN 12.5 g/dl (14.0-18.0); MEAN CELL VOLUME 85.5 fL CALC (80.0-100.0); MEAN CORPUSCULAR HGB 26.7 pG CALC (26.0-32.0); MEAN CORPUSCULAR HGB CONC 31.2 g/dL CAL (32.0-36.0); RED BLOOD COUNT 4.69 mill/uL (4.70-6.10); RED CELL DISTRI WIDTH 13.5 % (11.5-15.5)
[2023-01-22 05:23] LABS: ALBUMIN 4.3 g/dL (3.2-5.0); ALKALINE PHOSPHATASE 84 u/l (38-126); ANION GAP 12 (6-22 (CALC)); BILIRUBIN, TOTAL 0.4 mg/dL (0.2-1.3); BUN 25 mg/dL (8-23); BUN/CREATININE RATIO 26 (12-20 (CALC)); CARBON DIOXIDE 28 mmol/l (22-30); CHLORIDE 104 mmol/l (95-108); GFR FOR AFR.AMER. > 60 ML/MIN (>=60 (CALC)); GFR OTHER RACES > 60 ML/MIN (>=60 (CALC)); MAGNESIUM 2.3 mg/dL (1.6-2.3); POTASSIUM 4.5 mmol/l (3.5-5.1); SGOT/AST 31 u/l (19-48); SODIUM 139 mmol/l (137-146); TOTAL PROTEIN 7.4 g/dL (6.3-8.2)
[2023-01-22 08:01] VITALS: BP 159/55
[2023-01-22] MEDS ORDERED: DOXYCYCLINE100 MG PO (10:29)
[2023-01-22] MEDS ORDERED: PREDNISONE10 MG PO (10:30)
[2023-01-22] MEDS ORDERED: BACLOFEN5 MG PO (10:31)
[2023-01-22 10:53] VITALS: BP 183/72
== END 2023-01-22 12:41 | disposition home or self-care (01) ==
LOC: ED 11:08 → ED-I 11:08 → ED 12:10 → MS2 12:11 → ED-I 12:41 → MS2 14:25
PROVIDERS: Family Medicine; Nurse Practitioner Family; ADMIT Internal Medicine; ATTEND Internal Medicine
DX: L03.115 Cellulitis of right lower limb (principal); R00.1 Bradycardia, unspecified; I10 Essential (primary) hypertension; E11.65 Type 2 diabetes mellitus with hyperglycemia; E11.42 Type 2 diabetes mellitus with diabetic polyneuropathy; E78.5 Hyperlipidemia, unspecified; R42 Dizziness and giddiness; M25.511 Pain in right shoulder; E89.0 Postprocedural hypothyroidism; K21.9 Gastro-esophageal reflux disease without esophagitis; Z96.611 Presence of right artificial shoulder joint; Z86.73 Personal history of transient ischemic attack (TIA), and cerebral infarction without residual deficits; Z79.4 Long term (current) use of insulin; Z79.02 Long term (current) use of antithrombotics/antiplatelets; Z20.822 Contact with and (suspected) exposure to COVID-19
CPT/HCPCS: J1650; J3370

== ENCOUNTER 2023-01-25 07:16 | Emergency (ER) | payer MEDICARE, MEDICAID ==
[~2023-01-25] VITALS: Ht 185.4 cm; Wt 99.0 kg
[2023-01-25] VITALS (9 sets, daily range): BP systolic 145–203; BP diastolic 58–75
[~2023-01-25 07:16] MED LIST changes: +(None)1 % OP; +BACLOFEN5 MG PO; +COLACE100 MG PO; +DOXYCYCLINE100 MG PO; +FERROUS SULF325 M3 PO; +KETOROLAC0.5 % OP; +PREDNISONE10 MG PO; +VITAMIN D-32000 UNI1 PO
== END 2023-01-25 09:15 | disposition home or self-care (01) ==
LOC: ED 07:16
DX: M25.572 Pain in left ankle and joints of left foot (principal); M25.571 Pain in right ankle and joints of right foot; I10 Essential (primary) hypertension; E11.9 Type 2 diabetes mellitus without complications; E78.5 Hyperlipidemia, unspecified; Z79.4 Long term (current) use of insulin; Z86.73 Personal history of transient ischemic attack (TIA), and cerebral infarction without residual deficits

== ENCOUNTER 2023-03-13 12:08 | Inpatient (IN) | payer MEDICARE, MEDICAID ==
[2023-03-13] VITALS (17 sets, daily range): BP systolic 114–176; BP diastolic 31–85
[~2023-03-13] VITALS: Ht 185.4 cm; Wt 100.0 kg
[2023-03-13 14:05] LABS: BASO% 0.7 % (0-3); EOS% 5.1 % (0-8); HEMATOCRIT 39.8 % (39.0-50.0); HEMOGLOBIN 12.1 g/dl (14.0-18.0); IMMATURE GRANULOCYTES 0.2 % (0.0-5.0); LYMPH% 34.8 % (15-41); MEAN CELL VOLUME 89.6 fL CALC (80.0-100.0); MEAN CORPUSCULAR HGB 27.3 pG CALC (26.0-32.0); MEAN CORPUSCULAR HGB CONC 30.4 g/dL CAL (32.0-36.0); MONO% 15.9 % (2-13); NEUT# 1.76 thou/uL (1.82-7.42); NEUT% 43.3 % (42-76); RED BLOOD COUNT 4.44 mill/uL (4.70-6.10); RED CELL DISTRI WIDTH 13.3 % (11.5-15.5)
[2023-03-13 14:06] LABS: URINE BILIRUBIN - DIPSTICK NEGATIVE (NEGATIVE); URINE BLOOD DIPSTICK NEGATIVE (NEGATIVE); URINE COLOR YELLOW; URINE GLUCOSE - DIPSTICK 250 mg/dL (NEGATIVE); URINE KETONE NEGATIVE (NEGATIVE); URINE LEUK ESTERASE NEGATIVE (NEGATIVE); URINE PH 5.5 (4.5-8.0); URINE PROTEIN - DIPSTICK NEGATIVE (NEG-TRACE); URINE SPECIFIC GRAVITY 1.015; URINE UROBILINOGEN - DIPSTICK 0.2 E.U./dL (0.2)
[2023-03-13 14:09] LABS: URINE NITRITE - DIPSTICK NEGATIVE (Negative)
[2023-03-13 14:27] LABS: ALBUMIN 4.1 g/dL (3.2-5.0); ALKALINE PHOSPHATASE 87 u/l (38-126); ANION GAP 14 (6-22 (CALC)); BILIRUBIN, TOTAL 0.5 mg/dL (0.2-1.3); BUN 17 mg/dL (8-23); BUN/CREATININE RATIO 14 (12-20 (CALC)); CARBON DIOXIDE 25 mmol/l (22-30); CHLORIDE 106 mmol/l (95-108); CREATININE 1.3 mg/dL (0.7-1.3); GFR FOR AFR.AMER. > 60 ML/MIN (>=60 (CALC)); GFR OTHER RACES 54 ML/MIN (>=60 (CALC)); POTASSIUM 4.1 mmol/l (3.5-5.1); SGOT/AST 53 u/l (19-48); SODIUM 141 mmol/l (137-146); TOTAL PROTEIN 7.7 g/dL (6.3-8.2)
[2023-03-14 00:11] VITALS: BP 114/35
[2023-03-14 04:11] VITALS: BP 116/32
[2023-03-14 04:28] VITALS: BP 116/32
[2023-03-14 05:43] LABS: HEMATOCRIT 36.1 % (39.0-50.0); HEMOGLOBIN 11.2 g/dl (14.0-18.0); MEAN CELL VOLUME 88.3 fL CALC (80.0-100.0); MEAN CORPUSCULAR HGB 27.4 pG CALC (26.0-32.0); RED BLOOD COUNT 4.09 mill/uL (4.70-6.10); RED CELL DISTRI WIDTH 13.5 % (11.5-15.5)
[2023-03-14 06:00] LABS: ALKALINE PHOSPHATASE 68 u/l (38-126); ANION GAP 10 (6-22 (CALC)); BILIRUBIN, TOTAL 0.4 mg/dL (0.2-1.3); BUN 16 mg/dL (8-23); BUN/CREATININE RATIO 17 (12-20 (CALC)); CARBON DIOXIDE 27 mmol/l (22-30); CHLORIDE 107 mmol/l (95-108); GFR FOR AFR.AMER. > 60 ML/MIN (>=60 (CALC)); GFR OTHER RACES > 60 ML/MIN (>=60 (CALC)); MAGNESIUM 1.9 mg/dL (1.6-2.3); POTASSIUM 3.6 mmol/l (3.5-5.1); SGOT/AST 28 u/l (19-48); SODIUM 141 mmol/l (137-146)
[2023-03-14 06:12] LABS: ALBUMIN 3.2 g/dL (3.2-5.0); TOTAL PROTEIN 5.9 g/dL (6.3-8.2)
[2023-03-14 07:13] VITALS: BP 138/45
[2023-03-14 07:15] VITALS: BP 134/43
[2023-03-14 11:10] VITALS: BP 136/49
[2023-03-14] MEDS ORDERED: DOXYCYCLINE100 MG PO (11:18)
== END 2023-03-14 13:24 | disposition home or self-care (01) | DRG 301 ==
LOC: ED 12:08 → MS2 16:21
PROVIDERS: Nurse Practitioner; ADMIT Internal Medicine; ATTEND Internal Medicine
DX: E11.51 Type 2 diabetes mellitus with diabetic peripheral angiopathy without gangrene (principal); I89.0 Lymphedema, not elsewhere classified; I11.0 Hypertensive heart disease with heart failure; I50.9 Heart failure, unspecified; E11.42 Type 2 diabetes mellitus with diabetic polyneuropathy; M25.511 Pain in right shoulder; K21.9 Gastro-esophageal reflux disease without esophagitis; E78.5 Hyperlipidemia, unspecified; Z86.73 Personal history of transient ischemic attack (TIA), and cerebral infarction without residual deficits; Z79.4 Long term (current) use of insulin
CPT/HCPCS: J0690; J1650

== ENCOUNTER 2023-03-24 13:23 | Emergency (ER) | payer MEDICARE, MEDICAID ==
[~2023-03-24] VITALS: Ht 185.4 cm; Wt 101.4 kg
[2023-03-24 13:33] VITALS: BP 150/57
[2023-03-24 13:46] VITALS: BP 143/54
[2023-03-24 14:00] VITALS: BP 133/53
[2023-03-24 14:15] VITALS: BP 123/47
[2023-03-24] MEDS ORDERED: TOBRAMYCIN0.31 OS (14:30)
[2023-03-24 14:31] VITALS: BP 133/47
[2023-03-24 14:35] VITALS: BP 133/47
== END 2023-03-24 14:41 | disposition home or self-care (01) ==
LOC: ED 13:23
DX: H10.9 Unspecified conjunctivitis (principal); I10 Essential (primary) hypertension; E11.9 Type 2 diabetes mellitus without complications; E78.5 Hyperlipidemia, unspecified; Z86.73 Personal history of transient ischemic attack (TIA), and cerebral infarction without residual deficits; Z79.4 Long term (current) use of insulin

== ENCOUNTER 2023-04-04 07:50 | Emergency (ER) | payer MEDICARE, MEDICAID ==
[~2023-04-04] VITALS: Ht 185.4 cm; Wt 101.3 kg
[2023-04-04] VITALS (10 sets, daily range): BP systolic 152–186; BP diastolic 57–93
[~2023-04-04 07:50] MED LIST changes: +TOBRAMYCIN0.31 OS
[2023-04-04 08:14] LABS: BASO% 0.6 % (0-3); HEMOGLOBIN 12.5 g/dl (14.0-18.0); IMMATURE GRANULOCYTES 0.2 % (0.0-5.0); MEAN CELL VOLUME 87.8 fL CALC (80.0-100.0); MEAN CORPUSCULAR HGB 26.8 pG CALC (26.0-32.0); MEAN CORPUSCULAR HGB CONC 30.5 g/dL CAL (32.0-36.0); MONO% 14.3 % (2-13); NEUT# 2.59 thou/uL (1.82-7.42); NEUT% 53.9 % (42-76); RED BLOOD COUNT 4.67 mill/uL (4.70-6.10); RED CELL DISTRI WIDTH 12.8 % (11.5-15.5)
[2023-04-04 08:24] LABS: ALKALINE PHOSPHATASE 82 u/l (38-126); ANION GAP 11 (6-22 (CALC)); BILIRUBIN, TOTAL 0.3 mg/dL (0.2-1.3); BUN 19 mg/dL (8-23); BUN/CREATININE RATIO 19 (12-20 (CALC)); CARBON DIOXIDE 28 mmol/l (22-30); CHLORIDE 103 mmol/l (95-108); GFR FOR AFR.AMER. > 60 ML/MIN (>=60 (CALC)); GFR OTHER RACES > 60 ML/MIN (>=60 (CALC)); POTASSIUM 3.4 mmol/l (3.5-5.1); SGOT/AST 31 u/l (19-48); SODIUM 139 mmol/l (137-146)
[2023-04-04 08:25] LABS: ALBUMIN 3.9 g/dL (3.2-5.0); TOTAL PROTEIN 7.2 g/dL (6.3-8.2)
[2023-04-04 09:04] LABS: URINE BILIRUBIN - DIPSTICK NEGATIVE (NEGATIVE); URINE COLOR YELLOW; URINE GLUCOSE - DIPSTICK >=1000 mg/dL (NEGATIVE); URINE KETONE TRACE mg/dL (NEGATIVE); URINE PH 5.5 (4.5-8.0); URINE PROTEIN - DIPSTICK NEGATIVE (NEG-TRACE); URINE SPECIFIC GRAVITY 1.015
[2023-04-04 09:05] LABS: URINE BLOOD DIPSTICK NEGATIVE (NEGATIVE); URINE LEUK ESTERASE NEGATIVE (NEGATIVE); URINE NITRITE - DIPSTICK NEGATIVE (Negative); URINE UROBILINOGEN - DIPSTICK 0.2 E.U./dL (0.2)
[2023-04-04] MEDS ORDERED: CITRATE OF MEGNESIA PO (09:22)
== END 2023-04-04 09:46 | disposition home or self-care (01) ==
LOC: ED 07:50
PROVIDERS: Family Medicine
DX: E11.649 Type 2 diabetes mellitus with hypoglycemia without coma (principal); K59.00 Constipation, unspecified; I10 Essential (primary) hypertension; E11.42 Type 2 diabetes mellitus with diabetic polyneuropathy; E03.9 Hypothyroidism, unspecified; E78.5 Hyperlipidemia, unspecified; N40.0 Benign prostatic hyperplasia without lower urinary tract symptoms; Z86.73 Personal history of transient ischemic attack (TIA), and cerebral infarction without residual deficits; Z79.4 Long term (current) use of insulin

== ENCOUNTER 2023-04-28 13:24 | Emergency (ER) | payer MEDICARE, MEDICAID ==
[2023-04-28] VITALS (18 sets, daily range): BP systolic 105–156; BP diastolic 41–76
[~2023-04-28] VITALS: Ht 185.4 cm; Wt 99.0 kg
[2023-04-28 14:19] LABS: BASO% 0.5 % (0-3); EOS% 3.1 % (0-8); HEMATOCRIT 38.8 % (39.0-50.0); HEMOGLOBIN 12.2 g/dl (14.0-18.0); IMMATURE GRANULOCYTES 0.2 % (0.0-5.0); LYMPH% 30.9 % (15-41); MEAN CELL VOLUME 86.6 fL CALC (80.0-100.0); MEAN CORPUSCULAR HGB 27.2 pG CALC (26.0-32.0); MEAN CORPUSCULAR HGB CONC 31.4 g/dL CAL (32.0-36.0); MONO% 12.4 % (2-13); NEUT# 3.21 thou/uL (1.82-7.42); NEUT% 52.9 % (42-76); RED BLOOD COUNT 4.48 mill/uL (4.70-6.10); RED CELL DISTRI WIDTH 12.8 % (11.5-15.5)
[2023-04-28 14:29] LABS: ALBUMIN 4.1 g/dL (3.2-5.0); ALKALINE PHOSPHATASE 73 u/l (38-126); ANION GAP 11 (6-22 (CALC)); BUN 22 mg/dL (8-23); BUN/CREATININE RATIO 14 (12-20 (CALC)); CARBON DIOXIDE 29 mmol/l (22-30); CHLORIDE 106 mmol/l (95-108); CREATININE 1.5 mg/dL (0.7-1.3); GFR FOR AFR.AMER. 56 ML/MIN (>=60 (CALC)); GFR OTHER RACES 46 ML/MIN (>=60 (CALC)); LIPASE < 10 u/l (23-300); POTASSIUM 3.8 mmol/l (3.5-5.1); SGOT/AST 43 u/l (19-48); SODIUM 142 mmol/l (137-146); TOTAL PROTEIN 7.2 g/dL (6.3-8.2)
[2023-04-28 14:32] LABS: BILIRUBIN, TOTAL 0.5 mg/dL (0.2-1.3)
[2023-04-28 17:17] LABS: URINE BILIRUBIN - DIPSTICK Negative (NEGATIVE); URINE BLOOD DIPSTICK Negative (NEGATIVE); URINE COLOR Yellow; URINE GLUCOSE - DIPSTICK 500 mg/dL (NEGATIVE); URINE KETONE Negative (NEGATIVE); URINE LEUK ESTERASE Negative (NEGATIVE); URINE NITRITE - DIPSTICK Negative (Negative); URINE PH 5.5 (4.5-8.0); URINE PROTEIN - DIPSTICK Negative (NEG-TRACE); URINE UROBILINOGEN - DIPSTICK 0.2 E.U./dL (0.2)
[2023-04-28] MEDS ORDERED: PEPCID20 MG PO (17:31)
== END 2023-04-28 17:58 | disposition home or self-care (01) ==
LOC: ED 13:24
PROVIDERS: Family Medicine
DX: R53.1 Weakness (principal); R61 Generalized hyperhidrosis; K21.9 Gastro-esophageal reflux disease without esophagitis; E11.9 Type 2 diabetes mellitus without complications; I10 Essential (primary) hypertension; E78.5 Hyperlipidemia, unspecified; Z86.73 Personal history of transient ischemic attack (TIA), and cerebral infarction without residual deficits; Z79.4 Long term (current) use of insulin; Z96.41 Presence of insulin pump (external) (internal); Z20.822 Contact with and (suspected) exposure to COVID-19

== ENCOUNTER 2023-06-14 11:04 | Emergency (ER) | payer MEDICARE, MEDICAID ==
[2023-06-14] VITALS (17 sets, daily range): BP systolic 148–182; BP diastolic 58–73
[~2023-06-14] VITALS: Ht 185.4 cm; Wt 97.0 kg
[~2023-06-14 11:04] MED LIST changes: +GENTAMICIN0.3 % OS
[2023-06-14 13:10] LABS: BASO% 0.8 % (0-3); EOS% 5.1 % (0-8); HEMATOCRIT 37.8 % (39.0-50.0); HEMOGLOBIN 11.7 g/dl (14.0-18.0); LYMPH% 36.7 % (15-41); MEAN CELL VOLUME 85.9 fL CALC (80.0-100.0); MEAN CORPUSCULAR HGB 26.6 pG CALC (26.0-32.0); MONO% 14.5 % (2-13); NEUT# 2.11 thou/uL (1.82-7.42); NEUT% 42.9 % (42-76); RED BLOOD COUNT 4.4 mill/uL (4.70-6.10); RED CELL DISTRI WIDTH 13.4 % (11.5-15.5)
[2023-06-14 13:10] LABS: URINE BILIRUBIN - DIPSTICK Negative (NEGATIVE); URINE BLOOD DIPSTICK Negative (NEGATIVE); URINE GLUCOSE - DIPSTICK >=1000 mg/dL (NEGATIVE); URINE KETONE Negative (NEGATIVE); URINE LEUK ESTERASE Negative (NEGATIVE); URINE NITRITE - DIPSTICK Negative (Negative); URINE PH 5.5 (4.5-8.0); URINE PROTEIN - DIPSTICK Trace mg/dL (NEG-TRACE); URINE UROBILINOGEN - DIPSTICK 0.2 E.U./dL (0.2)
[2023-06-14 13:11] LABS: URINE COLOR Dark yellow
[2023-06-14 13:25] LABS: LIPASE < 10 u/l (23-300)
[2023-06-14 13:26] LABS: ALBUMIN 3.8 g/dL (3.2-5.0); ALKALINE PHOSPHATASE 74 u/l (38-126); ANION GAP 9 (6-22 (CALC)); BILIRUBIN, TOTAL 0.9 mg/dL (0.2-1.3); BUN 17 mg/dL (8-23); BUN/CREATININE RATIO 16 (12-20 (CALC)); CARBON DIOXIDE 30 mmol/l (22-30); CHLORIDE 103 mmol/l (95-108); GFR FOR AFR.AMER. > 60 ML/MIN (>=60 (CALC)); GFR OTHER RACES > 60 ML/MIN (>=60 (CALC)); POTASSIUM 4.1 mmol/l (3.5-5.1); SGOT/AST 33 u/l (19-48); SODIUM 138 mmol/l (137-146); TOTAL PROTEIN 6.8 g/dL (6.3-8.2)
[2023-06-14] MEDS ORDERED: OXYCOD-APAP1 TA1 PO (14:31)
[2023-06-14] MEDS ORDERED: [UNRECOGNIZED DRUG - OTHER] PO (16:53)
[2023-06-14] MEDS ORDERED: DICYCLOMINE HYD10 MG PO (16:53)
== END 2023-06-14 17:50 | disposition home or self-care (01) ==
LOC: ED 11:04
PROVIDERS: Family Medicine; Nurse Practitioner
DX: K59.00 Constipation, unspecified (principal); I10 Essential (primary) hypertension; E11.9 Type 2 diabetes mellitus without complications; E78.5 Hyperlipidemia, unspecified; M25.511 Pain in right shoulder; G89.29 Other chronic pain; Z79.891 Long term (current) use of opiate analgesic; Z86.73 Personal history of transient ischemic attack (TIA), and cerebral infarction without residual deficits; Z79.4 Long term (current) use of insulin
CPT/HCPCS: Q9967; S0164

== ENCOUNTER 2023-09-24 10:40 | Emergency (ER) | payer MEDICARE, MEDICAID ==
[~2023-09-24] VITALS: Ht 185.4 cm; Wt 99.3 kg
[2023-09-24] VITALS (10 sets, daily range): BP systolic 135–168; BP diastolic 50–72
[~2023-09-24 10:40] MED LIST changes: +DICYCLOMINE HYD10 MG PO; +OXYCOD-APAP1 TA1 PO; +PROTONIX40 M2 PO; +[UNRECOGNIZED DRUG - OTHER] PO
[2023-09-24 11:28] LABS: BASO% 0.7 % (0-3); EOS% 4.7 % (0-8); HEMOGLOBIN 11.9 g/dl (14.0-18.0); IMMATURE GRANULOCYTES 0.2 % (0.0-5.0); LYMPH% 31.4 % (15-41); MEAN CELL VOLUME 84.8 fL CALC (80.0-100.0); MEAN CORPUSCULAR HGB 25.9 pG CALC (26.0-32.0); MEAN CORPUSCULAR HGB CONC 30.5 g/dL CAL (32.0-36.0); MONO% 11.2 % (2-13); NEUT# 2.07 thou/uL (1.82-7.42); NEUT% 51.8 % (42-76); RED BLOOD COUNT 4.6 mill/uL (4.70-6.10); RED CELL DISTRI WIDTH 14.2 % (11.5-15.5)
[2023-09-24 11:28] LABS: URINE BILIRUBIN - DIPSTICK Negative (NEGATIVE); URINE BLOOD DIPSTICK Trace-intact (NEGATIVE); URINE CLARITY Clear; URINE GLUCOSE - DIPSTICK 500 mg/dL (NEGATIVE); URINE KETONE Negative (NEGATIVE); URINE LEUK ESTERASE Negative (Negative); URINE NITRITE - DIPSTICK Negative (Negative); URINE PROTEIN - DIPSTICK Negative (NEG-TRACE); URINE SPECIFIC GRAVITY 1.015; URINE UROBILINOGEN - DIPSTICK 0.2 E.U./dL (0.2)
[2023-09-24 11:30] LABS: URINE COLOR Yellow
[2023-09-24 11:44] LABS: ALBUMIN 3.8 g/dL (3.2-5.0); ALKALINE PHOSPHATASE 81 u/l (38-126); ANION GAP 7 (6-22 (CALC)); BILIRUBIN, TOTAL 0.6 mg/dL (0.2-1.3); BUN 16 mg/dL (8-23); BUN/CREATININE RATIO 19 (12-20 (CALC)); CARBON DIOXIDE 30 mmol/l (22-30); CHLORIDE 104 mmol/l (95-108); CREATININE 0.9 mg/dL (0.7-1.3); GFR FOR AFR.AMER. > 60 ML/MIN (>=60 (CALC)); GFR OTHER RACES > 60 ML/MIN (>=60 (CALC)); POTASSIUM 4.4 mmol/l (3.5-5.1); SGOT/AST 30 u/l (19-48); SODIUM 138 mmol/l (137-146); TOTAL PROTEIN 6.5 g/dL (6.3-8.2)
[2023-09-24] MEDS ORDERED: TAMSULOSIN0.4 MG PO (12:47)
[2023-09-24] MEDS ORDERED: BACTRIM DS1 TAB PO (12:47)
== END 2023-09-24 13:20 | disposition home or self-care (01) ==
LOC: ED 10:40
PROVIDERS: Emergency Medicine
DX: K59.00 Constipation, unspecified (principal); R33.9 Retention of urine, unspecified; E11.9 Type 2 diabetes mellitus without complications; I10 Essential (primary) hypertension; E78.5 Hyperlipidemia, unspecified; Z86.73 Personal history of transient ischemic attack (TIA), and cerebral infarction without residual deficits; Z88.0 Allergy status to penicillin; Z88.8 Allergy status to other drugs, medicaments and biological substances; Z79.4 Long term (current) use of insulin

== ENCOUNTER 2024-03-14 09:22 | Emergency (ER) | payer MEDICARE, MEDICAID ==
[~2024-03-14] VITALS: Ht 185.4 cm; Wt 97.5 kg
[2024-03-14] VITALS (22 sets, daily range): BP systolic 158–190; BP diastolic 53–76
[~2024-03-14 09:22] MED LIST changes: +CLINDAMYCIN300 M1 PO
[2024-03-14] MEDS ORDERED: KETOROLAC TROMETHAMINE 15 MG/ML SDV IV STA (09:54)
[2024-03-14] MEDS ORDERED: MORPHINE SULFATE 4 MG/ML VIAL IV STA (09:54)
[2024-03-14 10:08] LABS: BASO% 0.6 % (0-3); EOS% 6.8 % (0-8); HEMATOCRIT 40.3 % (39.0-50.0); HEMOGLOBIN 12.4 g/dl (14.0-18.0); LYMPH% 27.2 % (15-41); MEAN CELL VOLUME 84.3 fL CALC (80.0-100.0); MEAN CORPUSCULAR HGB 25.9 pG CALC (26.0-32.0); MEAN CORPUSCULAR HGB CONC 30.8 g/dL CAL (32.0-36.0); MONO% 12.7 % (2-13); NEUT# 2.62 thou/uL (1.82-7.42); NEUT% 52.7 % (42-76); RED BLOOD COUNT 4.78 mill/uL (4.70-6.10)
[2024-03-14 10:24] LABS: POTASSIUM 4.2 mmol/l (3.5-5.1); TOTAL PROTEIN 7.5 g/dL (6.3-8.2)
== END 2024-03-14 16:05 | disposition home or self-care (01) ==
LOC: ED 09:22
PROVIDERS: Emergency Medicine
DX: R10.9 Unspecified abdominal pain (principal); I10 Essential (primary) hypertension; E11.9 Type 2 diabetes mellitus without complications; E78.5 Hyperlipidemia, unspecified; Z86.73 Personal history of transient ischemic attack (TIA), and cerebral infarction without residual deficits; Z79.4 Long term (current) use of insulin
CPT/HCPCS: Q9967

== ENCOUNTER 2024-05-09 11:59 | Emergency (ER) | payer MEDICARE, MEDICAID ==
[2024-05-09] VITALS (17 sets, daily range): BP systolic 157–191; BP diastolic 59–74
[~2024-05-09] VITALS: Ht 185.4 cm; Wt 97.5 kg
[2024-05-09] MEDS ORDERED: SODIUM CHLORIDE 0.9% 1,000 ML IV ONE (13:20)
[2024-05-09 13:31] LABS: BASO% 0.8 % (0-3); EOS% 4.6 % (0-8); HEMATOCRIT 35.9 % (39.0-50.0); HEMOGLOBIN 11.1 g/dl (14.0-18.0); IMMATURE GRANULOCYTES 0.2 % (0.0-5.0); LYMPH% 34.7 % (15-41); MEAN CELL VOLUME 83.5 fL CALC (80.0-100.0); MEAN CORPUSCULAR HGB 25.8 pG CALC (26.0-32.0); MEAN CORPUSCULAR HGB CONC 30.9 g/dL CAL (32.0-36.0); MONO% 12.6 % (2-13); NEUT# 2.24 thou/uL (1.82-7.42); NEUT% 47.1 % (42-76); RED BLOOD COUNT 4.3 mill/uL (4.70-6.10)
[2024-05-09 13:48] LABS: ALBUMIN 3.5 g/dL (3.2-5.0); ALKALINE PHOSPHATASE 67 u/l (38-126); ANION GAP 4 (6-22 (CALC)); BILIRUBIN, TOTAL 0.3 mg/dL (0.2-1.3); BUN 16 mg/dL (8-23); BUN/CREATININE RATIO 18 (12-20 (CALC)); CARBON DIOXIDE 32 mmol/l (22-30); CHLORIDE 107 mmol/l (95-108); CREATININE 0.9 mg/dL (0.7-1.3); ESTIMATED GFR 90 ML/MIN (>=90 (CALC)); POTASSIUM 4.3 mmol/l (3.5-5.1); SGOT/AST 27 u/l (19-48); SODIUM 138 mmol/l (137-146); TOTAL PROTEIN 6.5 g/dL (6.3-8.2)
[2024-05-09] MEDS ORDERED: NAPROXEN500 MG PO (15:34)
== END 2024-05-09 16:06 | disposition home or self-care (01) ==
LOC: ED 11:59
PROVIDERS: Family Medicine
DX: R53.1 Weakness (principal); D64.9 Anemia, unspecified; E11.9 Type 2 diabetes mellitus without complications; I10 Essential (primary) hypertension; Z86.73 Personal history of transient ischemic attack (TIA), and cerebral infarction without residual deficits; Z20.822 Contact with and (suspected) exposure to COVID-19; R05.9 Cough, unspecified; R06.02 Shortness of breath; R51.9 Headache, unspecified; J02.9 Acute pharyngitis, unspecified; R52 Pain, unspecified; R10.9 Unspecified abdominal pain; R19.7 Diarrhea, unspecified

== ENCOUNTER 2024-09-01 10:16 | Emergency (ER) | payer MEDICARE ==
[~2024-09-01] VITALS: Ht 185.4 cm; Wt 100.0 kg
[2024-09-01] VITALS (9 sets, daily range): BP systolic 170–189; BP diastolic 67–132
[~2024-09-01 10:16] MED LIST changes: +NAPROXEN500 MG PO
[2024-09-01 12:20] LABS: BASO% 0.9 % (0-3); EOS% 4.8 % (0-8); HEMOGLOBIN 12.7 g/dl (14.0-18.0); LYMPH% 29.8 % (15-41); MEAN CELL VOLUME 85.3 fL CALC (80.0-100.0); MEAN CORPUSCULAR HGB 25.6 pG CALC (26.0-32.0); MONO% 12.7 % (2-13); NEUT# 2.4 thou/uL (1.82-7.42); NEUT% 51.8 % (42-76); RED BLOOD COUNT 4.97 mill/uL (4.70-6.10); RED CELL DISTRI WIDTH 14.2 % (11.5-15.5)
[2024-09-01 12:26] LABS: HEMATOCRIT 42.4 % (39.0-50.0)
[2024-09-01 12:30] LABS: ALBUMIN 4.2 g/dL (3.2-5.0); BILIRUBIN, TOTAL 0.6 mg/dL (0.2-1.3); CREATININE 0.9 mg/dL (0.7-1.3); POTASSIUM 4.1 mmol/l (3.5-5.1); TOTAL PROTEIN 7.6 g/dL (6.3-8.2)
[2024-09-01] MEDS ORDERED: METHOCARBAMOL500 MG PO (14:01)
== END 2024-09-01 14:27 | disposition home or self-care (01) ==
LOC: ED 10:16
PROVIDERS: Family Medicine
DX: M47.816 Spondylosis without myelopathy or radiculopathy, lumbar region (principal); M16.0 Bilateral primary osteoarthritis of hip; I10 Essential (primary) hypertension; E78.5 Hyperlipidemia, unspecified; E11.9 Type 2 diabetes mellitus without complications; Z86.73 Personal history of transient ischemic attack (TIA), and cerebral infarction without residual deficits; Z79.4 Long term (current) use of insulin; Z79.891 Long term (current) use of opiate analgesic
CPT/HCPCS: Q9967